=== PATIENT | male | born 1965 | race Caucasian/White ===

== ENCOUNTER → 2021-09-05 | Outpatient (CLI) | payer BC ==
[~2021-09-05] MED LIST: BAYER ASPIRIN C81 MG PO; LEVOFLOXACIN500 MG PO; Motrin,Rufen800 MG PO; ZESTRIL,PRINIVI10 MG PO
== END | disposition home or self-care (01) ==
LOC: COVID19 16:06
PROVIDERS: ATTEND Internal Medicine
DX: Z11.52 Encounter for screening for COVID-19 (principal)

== ENCOUNTER → 2023-03-30 | Outpatient (CLI) | payer BC ==
[2023-03-30 16:06] LABS: TOTAL PROTEIN 7.8 gm/dL (6.0-8.0)
[2023-03-31 07:07] LABS: HBSAG Negative (Negative); HEP B CORE AB, IGM Negative (Negative); HEPATITIS C ANTIBODY Non Reactive (Non Reactive)
== END | disposition home or self-care (01) ==
LOC: LAB 15:10
PROVIDERS: ATTEND Family Medicine
DX: R74.01 Elevation of levels of liver transaminase levels (principal)